=== PATIENT | male | born 1960 | race Caucasian/White ===

== ENCOUNTER 2016-08-01 21:42 | Emergency (ER) | payer BC ==
[2016-08-01] MEDS ORDERED: Sodium Chloride 0.9% 1,000 ML IV ONE (22:21)
[2016-08-01] MEDS ORDERED: Ondansetron 4 MG/2 ML SDV IV ONE (22:21)
[2016-08-01] MEDS ORDERED: HYDROmorphone 1 MG/ML Syringe IVPUSH ONE ×2 (22:22→22:59)
[2016-08-01 23:11] LABS: CHLORIDE,CL 105 mmol/L (101-111); SODIUM,NA 137 mmol/L (135-145)
[2016-08-01 23:30] VITALS: BP 136/83
[2016-08-01] MEDS ORDERED: Acetaminophen/oxyCODONE 325-5 MG Tab ONE (23:36)
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
[2016-08-01] MEDS ORDERED: Acetaminophen/oxyCODONE 325-5 MG Tab PO ONE (23:37)
[2016-08-01] MEDS ORDERED: Cyclobenzaprine 10 MG Tab ONE (23:37)
[2016-08-01] MEDS ORDERED: Cyclobenzaprine 10 MG Tab PO ONE (23:37)
== END 2016-08-01 23:47 | disposition home or self-care (01) ==
LOC: DL.ED 21:42
DX: M54.12 Radiculopathy, cervical region (principal); G44.209 Tension-type headache, unspecified, not intractable; M19.90 Unspecified osteoarthritis, unspecified site; F17.210 Nicotine dependence, cigarettes, uncomplicated; Z88.1 Allergy status to other antibiotic agents
CPT/HCPCS: 36415; 70450; 80053; 85025; 86140; 87081; 87430; 87804; 96365; 96375; 99284; A9270; J1170; J2405; J7030

== ENCOUNTER 2017-12-19 22:52 | Emergency (ER) | payer BC ==
[2017-12-19 22:57] VITALS: BP 130/79
[2017-12-19] MEDS ORDERED: Albuterol/Ipratropium 3.0-0.5 MG/3 ML Neb Soln NEB ONE (23:18)
[2017-12-19] MEDS ORDERED: methylPREDNISolone Sodium Succinate 125 MG/2 ML SDV IVPUSH ONE (23:18)
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
[2017-12-19] MEDS ORDERED: Ketorolac 30 MG/ML SDV IVPUSH ONE (23:40)
[2017-12-19 23:57] LABS: ANION GAP 12.6; CHLORIDE,CL 105 mmol/L (101-111); SODIUM,NA 141 mmol/L (135-145)
[2017-12-20] MEDS ORDERED: Albuterol 0.083% 2.5 MG/3 ML Neb Soln NEB ONE (00:11)
[2017-12-20] MEDS ORDERED: Acetaminophen/HYDROcodone 325-10 MG Tab ONE (01:27)
== END 2017-12-20 01:31 | disposition home or self-care (01) ==
LOC: DL.ED 22:52
DX: J44.1 Chronic obstructive pulmonary disease with (acute) exacerbation (principal); G54.0 Brachial plexus disorders; F17.210 Nicotine dependence, cigarettes, uncomplicated; Z79.899 Other long term (current) drug therapy; Z88.1 Allergy status to other antibiotic agents
CPT/HCPCS: 36415; 71046; 80053; 83605; 84484; 85025; 87040; 93005; 94640; 96374; 96375; 99285; A9270; J1885; J2930; J7613-GY; J7620-GY

== ENCOUNTER 2022-01-24 23:08 | Emergency (ER) | payer BC ==
[2022-01-25] MEDS ORDERED: cefTRIAXone 1 GM Vial IV ONE (23:58)
== END 2022-01-25 00:17 | disposition home or self-care (01) ==
LOC: DL.ED 23:08
DX: S51.831A Puncture wound without foreign body of right forearm, initial encounter (principal); I25.10 Atherosclerotic heart disease of native coronary artery without angina pectoris; W26.8XXA Contact with other sharp object(s), not elsewhere classified, initial encounter
CPT/HCPCS: 73090; 96372; 99283; J0696